=== PATIENT | male | born 1930 | race Caucasian/White ===

== ENCOUNTER 2016-05-27 16:03 | Emergency (ER) | payer OTHER ==
[~2016-05-27] VITALS: Ht 162.6 cm; Wt 84.8 kg
[~2016-05-27 16:03] MED LIST: ALENDRONAT70 MG/75 M PO; ASPIR-LOW81 M1 PO; CARD1 PO; FENOFIBRATE130 MG PO; IND10 PO; JANUVIA PO; NOR10 PO; ZETIA PO; ZOC20 PO
[2016-05-27 20:25] VITALS: BP 154/74
== END 2016-05-27 20:25 | disposition home or self-care (01) ==
LOC: ED 16:03
DX: I10 Essential (primary) hypertension (principal); E11.9 Type 2 diabetes mellitus without complications; M81.0 Age-related osteoporosis without current pathological fracture; E78.5 Hyperlipidemia, unspecified